=== PATIENT | female | born 1945 | race Caucasian/White ===

== ENCOUNTER 2016-10-03 10:55 | Inpatient (IN) | payer OTHER ==
[2016-09-18 09:03] VITALS: BMI 44.0
--- NOTE | 2016-09-18 09:31 | PAT Medication Instructions ---
Service Date Sep 18, 2016. Current Home Medication List Acetaminophen (Tylenol), 1,000 MG PO BID Amlodipine (Norvasc), 5 MG PO QAM Aspirin (Aspirin Ec), 81 MG PO QAM Ergocalciferol (Vitamin D 60400 Unit), 50,000 UNIT PO 2XWEEK Levothyroxine Sodium (Levothyroxine Sodium), 1 TAB PO QAM Lorazepam (Ativan), 0.5 MG PO TID PRN for PRN Metoprolol Tartrate (Lopressor) (Lopressor), 50 MG PO QAM Multivitamin (Multivitamin), 1 TAB PO PRN Pantoprazole (Protonix), 40 MG PO QAM Prednisone (Prednisone), 5 MG PO QAM Probiotic Product (Probiotic), 1 TAB PO QAM PRN for treasury agent Instructions For Your Scheduled Surgery Aspirin (Aspirin Ec), 81 MG PO QAM (patient will check with surgeon for instructions) - Hold the following medications the morning of surgery: Probiotic Product (Probiotic), 1 TAB PO QAM PRN for RN Multivitamin (Multivitamin), 1 TAB PO PRN Ergocalciferol (Vitamin D 00071 Unit), 50,000 UNIT PO 2XWEEK - Take the following medications the morning of surgery with a sip of water: Prednisone (Prednisone), 5 MG PO QAM Pantoprazole (Protonix), 40 MG PO QAM Metoprolol Tartrate (Lopressor) (Lopressor), 50 MG PO QAM Lorazepam (Ativan), 0.5 MG PO TID PRN for PRN Levothyroxine Sodium (Levothyroxine Sodium), 1 TAB PO QAM Amlodipine (Norvasc), 5 MG PO QAM Acetaminophen (Tylenol), 1,000 MG PO BID (if needed) - Take the following medications as scheduled the night before surgery: Lorazepam (Ativan), 0.5 MG PO TID PRN for PRN (if needed) Acetaminophen (Tylenol), 1,000 MG PO BID (if needed) If you have any questions please call us at [phone] or [phone] ( Naye) or [phone]
[2016-09-18 10:26] LABS: BASO % 0.7 %; BASO ABS # 0.06 K/uL (0-0.2); COMPLETE YES; EOS % 1.6 %; HEMATOCRIT 43.9 % (37-47); IG% 0.2 %; LYMPH % 17.5 %; LYMPH ABS # 1.56 K/uL (1.2-3.4); MEAN CELL VOLUME 85.2 fL (80-100); MEAN CORPUSCULAR HEMOGLOBIN 28.3 pg (25-34); MEAN CORPUSCULAR HGB CONC 33.3 g/dl (32-36); MEAN PLATELET VOLUME 9.4 fL (7.4-10.4); MONO % 11.7 %; NEUT % 68.3 %; PLATELET COUNT 346 K/uL (130-400); RED BLOOD COUNT 5.15 M/uL (4.2-5.4); WHITE BLOOD COUNT 8.89 K/uL (4.8-10.8)
[2016-09-18 10:38] LABS: INR 0.9 (0.9-1.1); PROTHROMBIN TIME (PATIENT) 9.9 SECONDS (9.0-12.0)
[2016-09-18 10:46] LABS: ALT/SGPT 22 U/L (12-78); BLOOD UREA NITROGEN 17 mg/dl (7-18); BUN/CREATININE RATIO 17.1 (10-20); CALCIUM 10.4 mg/dl (8.5-10.1); CARBON DIOXIDE 28 mmol/L (21-32); CHLORIDE 106 mmol/L (98-107); GLUCOSE 93 mg/dl (70-99); POTASSIUM 4.1 mmol/L (3.5-5.1); SODIUM 143 mmol/L (136-145)
[2016-09-18 10:49] LABS: ALKALINE PHOSPHATASE 94 U/L (45-117); AST/SGOT 13 U/L (15-37)
[~2016-10-03] VITALS: Ht 157.5 cm; Wt 109.0 kg
[~2016-10-03 10:55] MED LIST: ACET-1256 PO; AMLO-110 PO; ASPI81TA28 PO; ERGO500037 PO; LACTATED RINGER'S 1000ML 1,000 ML IV SCH; LEVO150T9 PO; LORA-741 PO; METO50TA16 PO; MISCCAP80 PO; MULT-506 PO; PANT40TA PO; PRED-301 PO
[2016-10-03 11:40] VITALS: BP 163/82; PULSE 74; TEMP 36.7; O2SAT 94; Ht 157.5 cm; Wt 109.0 kg
[2016-10-03] MEDS ORDERED: CEFAZOLIN SOD 2000 MG in DEXTROSE 5% 50ML IV SCH (12:30)
[2016-10-03] MEDS ORDERED: EpHEDrine SULFATE INJ 50 MG/ML AMP ONE (12:34)
[2016-10-03] MEDS ORDERED: FENTANYL CITRATE INJ 50 MCG/1 ML 2 ML VIAL ONE ×2 (12:34→14:47)
[2016-10-03] MEDS ORDERED: SUCCINYLCHOLINE CHLORIDE 20 MG/ML 10 ML VIAL IV ONE (12:34)
[2016-10-03] MEDS ORDERED: ROCURONIUM BROMIDE 10 MG/ML 5 ML VIAL ONE (12:34)
[2016-10-03] MEDS ORDERED: PROPOFOL IV EMULSION 10 MG/ML 20 ML VIAL IV ONE (12:34)
[2016-10-03] MEDS ORDERED: GLYCOPYRROLATE INJ 0.2 MG/ML VIAL ONE (12:34)
[2016-10-03] MEDS ORDERED: MIDAZOLAM HCL 1 MG/ML 2ML VIAL ONE (12:34)
[2016-10-03] MEDS ORDERED: ONDANSETRON INJ 2 MG/ML 2 ML VIAL ONE (12:34)
[2016-10-03] MEDS ORDERED: NEOSTIGMINE METHYLSULFATE 5 MG/5 ML SYR ONE (12:34)
[2016-10-03] MEDS ORDERED: DEXAMETHASONE SOD INJ 4 MG/ML VIAL ONE (12:34)
[2016-10-03] MEDS ORDERED: LIDOCAINE HCL 2% 2 ML VIAL (20MG/ML) ONE (12:34)
[2016-10-03] MEDS ORDERED: PHENYLEPHRINE HCL INJ 10 MG/ML VIAL ONE (12:34)
--- NOTE | 2016-10-03 12:34 | History & Physical Bridge Note ---
H&P Re-Evaluation Bridge Note: I have examined the patient, reviewed the History & Physical and in the interval since the performance of the History & Physical I have noted the following changes of clinical significance: No changes noted
[2016-10-03] MEDS ORDERED: BACITRACIN OINT 15 GM TUBE ONE (12:44)
[2016-10-03] MEDS ORDERED: LIDOCAINE/EPINEPHRINE 1% 20 ML VIAL ONE (12:44)
[2016-10-03] MEDS ORDERED: ONDANSETRON INJ 2 MG/ML 2 ML VIAL IV PRN (13:15)
[2016-10-03] MEDS ORDERED: LABETALOL HCL IV 5 MG/ML 20ML IV PRN (13:15)
[2016-10-03] MEDS ORDERED: HYDROmorphone INJ 1 MG/ML SYR IV PRN (13:15)
[2016-10-03] MEDS ORDERED: ATROPINE SULFATE 0.1 MG/ML 5ML SYR IV PRN (13:15)
[2016-10-03] MEDS ORDERED: SODIUM CHLORIDE 0.9% 1000ML 1,000 ML IV SCH (15:09)
[2016-10-03] MEDS ORDERED: NALOXONE HCL 0.4 MG/1 ML VIAL/CARP IV PRN (15:15)
[2016-10-03] MEDS ORDERED: SURGICEL ABSORB HEMOSTAT 2IN X 14IN TOP ONE (15:27)
[2016-10-03] MEDS ORDERED: NALOXONE HCL 0.4 MG/1 ML VIAL/CARP ONE (16:27)
--- NOTE | 2016-10-03 16:31 | OPERATIVE REPORT ---
DATE OF OPERATION: 10/03/2016 PREOPERATIVE DIAGNOSIS: Parathyroid adenoma. POSTOPERATIVE DIAGNOSIS: Parathyroid adenoma. SURGEON: Payam Maher M.D. SURETY BOND AGENT: Amina Nieves PA-C. PROCEDURE: Minimally invasive parathyroidectomy with intraoperative monitoring of the recurrent laryngeal nerves and use of rapid PTH assay. INDICATIONS FOR THE PROCEDURE: A 71-year-old woman with primary hyperparathyroidism. Preoperative testing was highly suggestive for a parathyroid adenoma in the posterior to the superior aspect of the right thyroid lobe. Full informed consent including the indications, risks, benefits, and alternatives was provided in a relaxed office setting. There was an opportunity for questions and answers. FINDINGS: 1. A 3 x 2.7 cm parathyroid adenoma, located posterior to the superior aspect of the right thyroid lobe. It was also located lateral and posterior to the recurrent laryngeal nerve on the right and was found in the right tracheoesophageal groove. 2. Parathyroid hormone level dropped from the draw at the start of surgery (223 ) to 13 15 minutes after removal of the parathyroid adenoma. COMPLICATIONS: None. BLOOD LOSS: 150 mL. ANESTHESIA: General via endotracheal tube. SPECIMEN SENT: Parathyroid adenoma. DESCRIPTION OF PROCEDURE IS FOLLOWS: The patient had an uneventful endotracheal intubation. After that, she was prepped and draped in a standard fashion as I injected 10 mL of 1% lidocaine 1:100,000 parts epinephrine over the planned surgical site. A pre-parathyroid hormone level was drawn and was found to be 223. Following sterile prep and drape, an incision was made in the planned surgical site drawn before surgery. Dissection went down through skin and subcutaneous tissue and platysma. There was quite a bit of fat, so I removed fat using sharp dissection and also with electrocautery. Some peripheral veins needed to be ligated and divided. Strap muscles were divided in the midline and the right strap muscles were retracted laterally with a green retractor. The superior aspect of the right thyroid lobe was grasped with a [place] and dissection was carried out with peanuts and a [place] clamp to dissect posteriorly. There was no obvious adenoma seen superiorly. Jugular and carotid were identified and dissection was carried on between the esophagus and at the trachea, a little bit inferior to the superior aspect of the right thyroid lobe. The superior pole blood supply on the right was ligated and divided using Hemoclips and the LigaSure device. I identified the recurrent laryngeal nerve, but for some reason, it would not stimulate at 0.5 milliamps. Given my confidence in the correct identification of the nerve, I did not continue stimulating. Rather, at that time, I found the parathyroid adenoma and dissected out sharply from surrounding tissue and also using bipolar electrocautery and mini clips to ligate and dived nutrient blood supply. The parathyroid adenoma was removed in its entirety. A small piece was sent for frozen section and hypercellular parathyroid tissue was confirmed. I sent the remaining portion of the adenoma, which was quite large, for permanent section. Fifteen minutes was allowed from time of removal of the adenoma to redrawing of the parathyroid hormone level. The result from this blood draw became available about 45 minutes later. This level dropped down to 13 from 223. This confirmed removal of the parathyroid adenoma with no suspicion for a second adenoma. The surgical site was packed with some Surgicel and then the strap muscles were reapproximated using a 3-0 Vicryl. Tisseel was placed lateral to the platysma and the dermis was closed using 4-0 chromic suture in a simple inverted buried technique. Skin was closed with interrupted 5-0 nylon and running 6-0 nylon suture. Skin was cleaned with hydrogen peroxide followed by alcohol and then dried. Bacitracin ointment followed by Telfa and Tegaderm was placed. The patient was allowed to wake up and around and was extubated and transported to recovery in no apparent distress. I attest to the content of the Intraoperative Record and any orders documented therein. Any exceptions are noted below. DEON
[2016-10-03] MEDS: MoRPHine SULFATE 1 MG/ML 50 ML PCA CASS IV PRN ×3 (16:38→23:12)
--- NOTE | 2016-10-03 17:03 | Anesthesiology Progress Note ---
Anesthesia Post Op Note Date & Time Oct 03, 2016 at 17:04 Vital Signs Pain Intensity: 0 Vital Signs Past 12 Hours Date Time Temp Pulse Resp B/P Pulse Ox O2 Delivery O2 Flow Rate FiO2 10/03/16 17:00 36.0 77 21 158/69 96 Nasal Cannula 2 10/03/16 16:50 78 16 161/71 96 Nasal Cannula 2 10/03/16 16:40 78 18 162/64 100 Mask 10 10/03/16 16:30 79 18 167/69 99 Mask 10 10/03/16 16:24 36.0 87 17 170/68 99 Mask 10 10/03/16 11:40 36.7 74 20 163/82 94 Room Air Notes Mental Status: alert / awake / arousable, participated in evaluation Pt Amnestic to Procedure: Yes Nausea / Vomiting: adequately controlled Pain: adequately controlled Airway Patency, RR, SpO2: stable & adequate BP & HR: stable & adequate Hydration State: stable & adequate Anesthetic Complications: no major complications apparent
[2016-10-03 17:30] VITALS: BP 160/71; PULSE 80; TEMP 36.5; O2SAT 94
[2016-10-03 18:58] VITALS: BP 156/73; PULSE 89; TEMP 36.5; O2SAT 94
[2016-10-03] MEDS ORDERED: NON-FORMULARY MEDICATION (Probiotic Product (Probiotic) 1 TAB) PO PRN (19:15)
[2016-10-03] MEDS ORDERED: LORAZEPAM 0.5 MG TAB PO PRN (19:15)
[2016-10-03 19:50] VITALS: BP 159/74; PULSE 100; TEMP 36.7; O2SAT 94
[2016-10-03] MEDS: CALCIUM CARBONATE 500 MG CHEWABLE PO SCH (20:19)
[2016-10-03] MEDS: ACETAMINOPHEN 500 MG TAB PO SCH (20:19)
--- NOTE | 2016-10-03 20:35 | Medical Consult ---
Consultation Date of Consultation: Oct 03, 2016. Attending Physician: Payam Maher M.D. Reason for Consultation: medical mgmt History of Present Illness This is a 71 y/o female with PMHx of CKD stage 3, PMR on Chronic Prednisone, HTN and other problems as outlined below who presents POD 0 s/p parathyroidectomy performed by Dr. Maher. Pt is doing well post-operatively. Just complaining of minor sore throat. Pt denies fever/chills, chest pain, SOB, abd pain, N/V, bowel or bladder issues, LE edema ,calf pain, lightheadedness/ dizziness. Past Medical/Surgical History Medical Problems: (1) CKD (chronic kidney disease) stage 3, GFR 30-59 ml/min Status: Chronic (2) GERD (gastroesophageal reflux disease) Status: Chronic (3) HTN (hypertension) Status: Chronic (4) Hypothyroidism Status: Chronic (5) PMR (polymyalgia rheumatica) Status: Chronic Surgical Problems: (1) History of total hysterectomy Status: Resolved Social History Smoking Status: Never Smoker Alcohol Use: none Drug Use: none Allergies Coded Allergies: No Known Allergies (Unverified , 10/03/16) Home Medications Active Reported Aspirin Ec (Aspirin) 81 Mg Tab 81 Mg PO QAM Probiotic (Probiotic Product) 1 Cap Cap 1 Tab PO QAM PRN Levothyroxine Sodium 150 Mcg Tab 1 Tab PO QAM 90 Days Protonix (Pantoprazole Sodium) 40 Mg Tab 40 Mg PO QAM Prednisone 5 Mg Tab 5 Mg PO QAM Vitamin D 19407 Unit (Ergocalciferol) 50,000 Unit Cap 50,000 Unit PO 2XWEEK SUNDAYS AND THURSDAYS Lopressor (Metoprolol Tartrate) 50 Mg Tab 50 Mg PO QAM Ativan (Lorazepam) 0.5 Mg Tab 0.5 Mg PO TID PRN Tylenol (Acetaminophen) 500 Mg Tab 1,000 Mg PO BID Norvasc (Amlodipine Besylate) 5 Mg Tab 5 Mg PO QAM Current Inpatient Medications Current Inpatient Medications Medications (Trade) Dose Ordered Sig/Jennifer Route Start Time Stop Time Status Last Admin Dose Admin Lactated Ringer's (Lr 1000ml) 1,000 ml @ 15 mls/hr Q24H IV 10/03/16 06:00 10/04/16 05:59 10/03/16 12:14 15 MLS/HR Calcium Carbonate (Tums Chew Tab) 1,500 mg 3XDQ4 PO 10/03/16 20:00 11/02/16 19:59 10/03/16 20:19 1,500 MG Naloxone HCl (Narcan Inj) 0.1 mg Q5M PRN IV 10/03/16 15:15 11/02/16 15:14 Morphine Sulfate 50 mg 50 mg PRN PRN IV 10/03/16 15:15 10/17/16 15:14 10/03/16 17:41 50 MG Sodium Chloride (Nss 1000ml) 1,000 ml @ 15 mls/hr Q24H IV 10/03/16 15:09 11/02/16 15:08 Acetaminophen (Tylenol Tab) 1,000 mg BID PO 10/03/16 21:00 11/02/16 20:59 10/03/16 20:19 1,000 MG Amlodipine Besylate (Norvasc Tab) 5 mg QAM PO 10/04/16 09:00 11/03/16 08:59 Aspirin (Ecotrin Tab) 81 mg QAM PO 10/04/16 09:00 11/03/16 08:59 Ergocalciferol (Vitamin D Cap) 50,000 interunit MoTh@0900 PO 10/05/16 09:00 11/04/16 08:59 Levothyroxine Sodium (Synthroid Tab) 150 mcg DAILYBB PO 10/04/16 06:00 11/03/16 05:59 Lorazepam (Ativan Tab) 0.5 mg TID PRN PO 10/03/16 19:15 11/02/16 19:14 Metoprolol Tartrate (Lopressor Tab) 50 mg QAM PO 10/04/16 09:00 11/03/16 08:59 Pantoprazole Sodium (Protonix Tab) 40 mg QAM PO 10/04/16 09:00 11/03/16 08:59 Prednisone (PredniSONE TAB) 5 mg QAM PO 10/04/16 09:00 11/03/16 08:59 Review of Systems Constitutional: No chills, No fatigue, No fever, No weakness Eyes: No worsening of vision ENT: + sore throat Respiratory: No cough, No shortness of breath Cardiovascular: No chest pain, No claudication, No edema Abdomen: No constipation, No diarrhea, No nausea, No pain, No vomiting Musculoskeletal: No calf pain, No swelling Genitourinary - Female: No dysuria Neurologic: No weakness Psychiatric: No depression symptoms Endocrine: No fatigue Hematologic / Lymphatic: No abnormal bleeding/bruising Integumentary: No new/changing skin lesions Physical Exam Date Time Temp Pulse Resp B/P Pulse Ox O2 Delivery O2 Flow Rate FiO2 10/03/16 19:50 36.7 100 20 159/74 94 Nasal Cannula 4.0 10/03/16 18:58 36.5 89 18 156/73 94 Nasal Cannula 4.0 10/03/16 17:30 36.5 80 16 160/71 94 Nasal Cannula 2.0 10/03/16 17:20 78 19 160/59 94 Nasal Cannula 2 10/03/16 17:10 78 19 154/58 93 Nasal Cannula 2 10/03/16 17:00 36.0 77 21 158/69 96 Nasal Cannula 2 10/03/16 16:50 78 16 161/71 96 Nasal Cannula 2 10/03/16 16:40 78 18 162/64 100 Mask 10 10/03/16 16:30 79 18 167/69 99 Mask 10 10/03/16 16:24 36.0 87 17 170/68 99 Mask 10 10/03/16 11:40 36.7 74 20 163/82 94 Room Air General Appearance: WD/WN, no apparent distress, + pertinent finding (Pt is laying comfortably in bed ) Head: normocephalic, atraumatic Eyes: normal inspection ENT: hearing grossly normal, + pertinent finding (small dressing dry and intact over anterior neck ) Neck: supple Respiratory/Chest: chest non-tender, lungs clear, normal breath sounds, no respiratory distress Cardiovascular: regular rate, rhythm, no edema, no murmur Abdomen/GI: normal bowel sounds, non tender, soft Back: normal inspection Extremities/Musculoskelatal: normal inspection, no calf tenderness, no pedal edema Neurologic/Psych: alert, normal mood/affect, oriented x 3 Skin: normal color, warm/dry Laboratory Results Last 24 Hours Test 10/03/16 00:00 10/03/16 15:16 10/03/16 16:42 Parathyroid Hormone (Intact) 223.2 pg/mL 13.2 pg/mL Hematocrit 42.3 % Assessment & Plan PARATHYROID ADENOMA S/P PARATHYROIDECTOMY -POD 0; surgery performed by Dr. Maher -post-operative pain well managed -re-check PTH in AM -cont Calcium supplementation -will continue to follow CKD STAGE 3 -creatinine is at baseline -cont to monitor with daily prp and avoid nephrotoxic agents when able PMR -cont prednisone HYPOTHYROIDISM -cont levothyroxine GERD -cont Protonix HTN -BP slightly elevated -cont Norvasc and Metoprolol -monitor DVT PROPHYLAXIS -per ENT CODE STATUS -FULL CODE status DISPO -Per ENT. Pt seen in collaboration with Dr. Haile. Please see his addendum for further details. Thanks! -Of note: patient will be seen by Dr. Huang starting tomorrow AM. Thank you for this consultation. We will follow the patient with you during their hospital stay. You can reach a member of the [facility] Hospitalist Team 26/02 via pager @ .
[2016-10-03 20:51] VITALS: BP 117/67; PULSE 98; TEMP 36.4; O2SAT 95
--- NOTE | 2016-10-03 21:04 | Medical Consult ---
Consultation Note Date of Service Oct 03, 2016. Consultation Note This is a 71 year old female with PMH of hypercalcemia, primary hyperparathyroidism, polymyalgia rheumatica, MGUS, HTN, hypothyroidism presents for a parathyroid adenoma removal. She underwent this surgery earlier today; with no complications, pain is under control with medications. She denies any other issues, no hoarseness, no muscle pains, etc. VITALS: Last Vital Signs Documentation Date Time Temp Pulse Resp B/P Pulse Ox O2 Delivery O2 Flow Rate FiO2 10/03/16 19:50 36.7 100 20 159/74 94 Nasal Cannula 4.0 GEN: no acute distress HEENT: +bandaged anterior neck CVS: +S1, S2, RRR LUNGS: CTA b/l, no wheezing ABD: soft, NT/ND EXT: no edema Parathyroid Adenoma s/p resection POD #0 pain is controlled calcium carbonate TID other management as per ENT Hypothyroidism continue synthroid check TSH as outpatient
[2016-10-03 22:56] VITALS: BP 146/73; PULSE 100; TEMP 36.7; O2SAT 94
[2016-10-04 02:50] VITALS: BP 123/68; PULSE 85; TEMP 36.5; O2SAT 96
[2016-10-04] MEDS ORDERED: LEVOTHYROXINE 150 MCG TAB PO SCH (06:00)
[2016-10-04] MEDS: MoRPHine SULFATE 1 MG/ML 50 ML PCA CASS IV PRN (06:50)
[2016-10-04 07:03] LABS: HEMATOCRIT 41.1 % (37-47); MEAN CELL VOLUME 84.7 fL (80-100); MEAN CORPUSCULAR HGB CONC 33.1 g/dl (32-36); MEAN PLATELET VOLUME 9.2 fL (7.4-10.4); PLATELET COUNT 331 K/uL (130-400); RED BLOOD COUNT 4.85 M/uL (4.2-5.4); WHITE BLOOD COUNT 9.31 K/uL (4.8-10.8)
[2016-10-04 07:41] VITALS: BP 131/77; PULSE 82; TEMP 36.5; O2SAT 95
[2016-10-04 07:42] LABS: BUN/CREATININE RATIO 17.4 (10-20); CALCIUM 9.3 mg/dl (8.5-10.1); CREATININE 1.1 mg/dl (0.60-1.20); MAGNESIUM 1.8 mg/dl (1.8-2.4); POTASSIUM 4.3 mmol/L (3.5-5.1)
--- NOTE | 2016-10-04 08:34 | Discharge Instructions ---
Discharge Instructions Admission Reason for Admission: Hyperparathyroidism, Hypercalcemia Discharge Discharge Diagnosis / Problem: Parathyroid adenoma Discharge Goals Goal(s): Therapeutic intervention Activity Recommendations Activity Limitations: as noted below (No strenuous activity for 2 weeks) Shower/Bathe: keep incision dry Driving or Machine Use: Do not drive while taking narcotic . Instructions / Follow-Up Instructions / Follow-Up Patient will follow up with Dr. Payam Maher at [facility] as scheduled. Current Hospital Diet Patient's current hospital diet: Regular Diet Discharge Diet Recommended Diet: Regular Diet Pending Studies Studies pending at discharge: no Laboratory Results Last 24 Hours Test 10/03/16 15:16 10/03/16 16:42 10/04/16 06:45 Parathyroid Hormone (Intact) 13.2 pg/mL 11.6 pg/mL Hematocrit 42.3 % 41.1 % White Blood Count 9.31 K/uL Red Blood Count 4.85 M/uL Hemoglobin 13.6 g/dL Mean Corpuscular Volume 84.7 fL Mean Corpuscular Hemoglobin 28.0 pg Mean Corpuscular Hemoglobin Concent 33.1 g/dl RDW Standard Deviation 42.9 fL RDW Coefficient of Variation 13.9 % Platelet Count 331 K/uL Mean Platelet Volume 9.2 fL Sodium Level 140 mmol/L Potassium Level 4.3 mmol/L Chloride Level 103 mmol/L Carbon Dioxide Level 28 mmol/L Anion Gap 9.0 mmol/L Blood Urea Nitrogen 19 mg/dl Creatinine 1.10 mg/dl Est Creatinine Clear Calc Drug Dose 53.0 ml/min Estimated GFR () 57.7 Estimated GFR (Non- 49.8 BUN/Creatinine Ratio 17.4 Random Glucose 119 mg/dl Calcium Level 9.3 mg/dl Magnesium Level 1.8 mg/dl Medical Emergencies . Who to Call and When: Medical Emergencies: If at any time you feel your situation is an emergency, please call 911 immediately. . Non-Emergent Contact Non-Emergency issues call your: Primary Care Provider . . "Provider Documentation" section prepared by Amina Nieves. VTE Core Measure Inpt VTE Proph given/why not?: Augusto Moses
--- NOTE | 2016-10-04 08:48 | Discharge Summary ---
Discharge Summary Date of Service Oct 04, 2016. Discharge Summary Admission Date: Oct 03, 2016 at 15:21 Discharge Date: Oct 04, 2016 Discharge Disposition: Home Primary Diagnosis: Hyperparathyroidism, Hypercalcemia Procedures: Parathyroidectomy with intraoperative nerve monitoring Consultations: Hospitalist Consultation for Medical Management Pending Studies/Follow-Up: Patient will follow up with Dr. Payam Maher at [facility] as scheduled. Discharge Instructions Last Recorded Wt (Kilograms): 109.00 Activity Recommendations: limitations (No strenuous activity for 2 weeks) Diet At Discharge: Regular Allergies: Coded Allergies: No Known Allergies (Unverified , 10/03/16) Home Health Services: none Special Care: Call your doctor if: * Temperature above 101 degrees * Pain not relieved by pain medicine ordered * There is increased drainage or redness from any incision * You have any unanswered questions or concerns. Avoid all tobacco products. If you need help to stop smoking, call [place]'s FREE QUITLINE at . This is a free call. Hospital Course The patient presented on 10/03/16 for parathyroidectomy with intraoperative nerve monitoring for hyperparathyroidism and hypercalcemia due to a suspected parathyroid adenoma shown on pre-operative imaging studies. The patient tolerated the procedure well and rapid PTH assay confirmed her PTH had decreased from 223.2 pre-operative to 13.2 intraoperative. Her PTH this morning was 11. 2 and her calcium was WNL at 9.3. The hospitalist service was consulted for medical management who evaluated her yesterday. She reported today that she had minimal pain and only had to use the RN LACTATION CONSULTANT pump a few times and has been taking 3 tums three times a day as directed. The dressing was intact with minimal blood noted. The nurse will change her dressing before her discharge. There was no hoarseness noted. She will continue to take 3 tums three times a day as directed. She was advised to keep the incision clean and dry. She will follow up with Dr. Payam Maher as directed. Total time spent on discharge = This includes examination of the patient, discharge planning, medication reconciliation, and communication with other providers.
[2016-10-04 08:57] VITALS: BP 124/65; PULSE 85
[2016-10-04] MEDS ORDERED: METOPROLOL TARTRATE 50 MG TAB PO SCH (09:00)
[2016-10-04] MEDS ORDERED: AMLODIPINE BESYLATE 5 MG TAB PO SCH (09:00)
[2016-10-04] MEDS ORDERED: PANTOprazole SOD 40 MG TAB PO SCH (09:00)
[2016-10-04] MEDS ORDERED: ASPIRIN 81 MG ECTAB PO SCH (09:00)
[2016-10-04] MEDS: CALCIUM CARBONATE 500 MG CHEWABLE PO SCH (09:01)
[2016-10-04] MEDS: ACETAMINOPHEN 500 MG TAB PO SCH (09:02)
[2016-10-04 10:45] VITALS: BP 124/65; PULSE 85; TEMP 36.5; O2SAT 95
[2016-10-05] MEDS ORDERED: ERGOCALCIFEROL 50,000 INTER.UNIT CAP PO SCH (09:00)
== END 2016-10-04 11:00 | disposition home or self-care (01) | DRG 982 ==
LOC: ENRESERVTM → ENRESERVDT → C.ACU 10:55 → C.MSN 15:21
PROVIDERS: ADMIT Otolaryngology; ATTEND Otolaryngology
PROC: 0GB60ZZ Excision of Left Carotid Body, Open Approach (ICD-10-PCS; principal; 2016-10-03 12:20)
DX: D35.1 Benign neoplasm of parathyroid gland (principal); Z68.41 Body mass index [BMI] 40.0-44.9, adult; E21.3 Hyperparathyroidism, unspecified; I12.9 Hypertensive chronic kidney disease with stage 1 through stage 4 chronic kidney disease, or unspecified chronic kidney disease; N18.3 Chronic kidney disease, stage 3 (moderate); E03.9 Hypothyroidism, unspecified; K21.9 Gastro-esophageal reflux disease without esophagitis; D47.2 Monoclonal gammopathy; M35.3 Polymyalgia rheumatica; M19.90 Unspecified osteoarthritis, unspecified site; H91.90 Unspecified hearing loss, unspecified ear; E66.01 Morbid (severe) obesity due to excess calories; Z79.52 Long term (current) use of systemic steroids; Z79.82 Long term (current) use of aspirin; Z79.899 Other long term (current) drug therapy